=== PATIENT | male | born 1985 | race Caucasian/White ===

== ENCOUNTER 2018-02-10 03:35 | Emergency (ER) | payer OTHER ==
[~2018-02-10] VITALS: Ht 188 cm; Wt 128.0 kg
[2018-02-10 03:40] VITALS: TEMP 36.8; Ht 188 cm; Wt 128.0 kg
[2018-02-10] MEDS ORDERED: LABETALOL HCL IV 5 MG/ML 20ML IV STA (03:47)
[2018-02-10] MEDS ORDERED: SODIUM CHLORIDE 0.9% 1000ML 1,000 ML IV STA (03:47)
[2018-02-10 04:10] LABS: BASO % 0.9 %; BASO ABS # 0.07 K/uL (0-0.2); EOS % 2.2 %; EOS ABS # 0.18 K/uL (0-0.5); HEMATOCRIT 40.6 % (42-52); HEMOGLOBIN 13.8 g/dL (14.0-18.0); IG# 0.01 K/uL (0.00-0.02); LYMPH % 37.9 %; LYMPH ABS # 3.07 K/uL (1.2-3.4); MEAN CELL VOLUME 86.6 fL (80-100); MEAN CORPUSCULAR HEMOGLOBIN 29.4 pg (25-34); MEAN PLATELET VOLUME 9.2 fL (7.4-10.4); MONO % 6.7 %; MONO ABS # 0.54 K/uL (0.11-0.59); NEUT % 52.2 %; NEUT ABS # 4.22 K/uL (1.4-6.5); PLATELET COUNT 212 K/uL (130-400); RED CELL DISTRIBUTION WIDTH CV 12.6 % (11.5-14.5); RED CELL DISTRIBUTION WIDTH SD 39.9 fL (36.4-46.3); WHITE BLOOD COUNT 8.09 K/uL (4.8-10.8)
[2018-02-10] MEDS ORDERED: BUPR1SUB23 SL (04:12)
[2018-02-10 04:17] LABS: ISTAT CREATININE 1.1 mg/dl (0.6-1.3); ISTAT IONIZED CALCIUM 1.11 mmol/l (1.12-1.32); ISTAT POTASSIUM 3.3 mEq/L (3.3-5.0)
[2018-02-10 04:28] LABS: BLOOD UREA NITROGEN 13 mg/dl (7-18); CALCIUM 8.9 mg/dl (8.5-10.1); CARBON DIOXIDE 29 mmol/L (21-32); CREATININE 1.19 mg/dl (0.60-1.40); GLUCOSE 130 mg/dl (70-99); POTASSIUM 3.3 mmol/L (3.5-5.1); SODIUM 140 mmol/L (136-145)
[2018-02-10] MEDS ORDERED: OPTIRAY 320 IV PRN (04:45)
--- NOTE | 2018-02-10 04:45 | EMERGENCY ROOM VISIT NOTE ---
History First contact with patient: 03:38 Chief Complaint: HYPERTENSION Stated Complaint: HYPERTENSION History of Present Illness The patient is a 32 year old male who presents to the Emergency Room for evaluation of hypertension. Patient with long standing HTN though off meds for the last year (Lisinopril). Last BP check had been about a year ago. Admits sedentary lifestyle, bad diet, and smoking. Has been studying law and just graduated. Notes this evening with rushing sound/tinnitus in left ear and thus check BP and was 160/100. He was feeling a bit lightheaded (admits this may have been anxiety) and thus called [address]. He denies neuro deficits, vision changes, headache, arm pain, cp. He has no recent trauma , injury, car accidents, whiplash, manipulation of neck, etc. No history of dissection. Pt takes no medications. No PMH other than HTN. Notes family history of PE. No medications prior to arrival. Nothing makes symptoms better nor worse. Review of Systems See HPI for pertinent positives & negatives. A total of 10 systems reviewed and were otherwise negative. Past Medical/Surgical History Medical Problems: (1) Hypertension Hypertension, Smoking, Hepatitis C (treatment with cure Fall 2016) Social History Smoking Status: Current Some Day Smoker Alcohol Use: occasionally Drug Use: none Marital Status: single Occupation Status: [employer] student Current/Historical Medications Scheduled Buprenorphine Hcl-Naloxone Hcl (Suboxone 8-2 Mg), 1 DOSE SL DAILY Hydrochlorothiazide (Hctz), 1 TAB PO DAILY Physical Exam Vital Signs Date Time Temp Pulse Resp B/P (MAP) Pulse Ox O2 Delivery O2 Flow Rate FiO2 02/10/18 05:05 82 95 02/10/18 05:00 128/86 02/10/18 04:45 137/90 02/10/18 04:40 90 19 143/86 95 Room Air 02/10/18 04:39 143/86 02/10/18 04:35 92 20 144/105 96 Room Air 02/10/18 04:35 102 21 98 02/10/18 04:03 96 02/10/18 03:40 36.8 107 20 177/110 96 Room Air Physical Exam GENERAL: Patient is anxious appearing and in no acute distress. EYES: No scleral icterus, unremarkable pupils. EARS: Normal bilateral canals with some cerumen and normal TMs. ENT: Mucous membranes moist, no nasal congestion. NECK: No masses appreciated, no meningismus, trachea is midline. RESPIRATORY: No dyspnea. Clear to auscultation and equal bilaterally. No wheeze , no rhonchi. CARDIOVASCULAR: Regular rate and rhythm. No murmurs, rubs, gallops appreciated. GASTROINTESTINAL: Abdomen soft, nontender, no peritonitis. Bowel sounds positive. No masses appreciated. BACK: No midline tenderness, no CVA tenderness EXTREMITIES: Normal motion all extremities, no cyanosis, no edema. NEUROLOGIC: Alert and oriented, no acute motor or sensory deficits, no focal weakness, cranial nerves grossly intact. SKIN: No rash, no jaundice, no diaphoresis. Medical Decision & Procedures Laboratory Results 02/10/18 04:00 Red Blood Count 4.69, Mean Corpuscular Volume 86.6, Mean Corpuscular Hemoglobin 29.4, Mean Corpuscular Hemoglobin Concent 34.0, Mean Platelet Volume 9.2, Neutrophils (%) (Auto) 52.2, Lymphocytes (%) (Auto) 37.9, Monocytes (%) (Auto) 6.7, Eosinophils (%) (Auto) 2.2, Basophils (%) (Auto) 0.9, Neutrophils # (Auto) 4.22, Lymphocytes # (Auto) 3.07, Monocytes # (Auto) 0.54, Eosinophils # (Auto) 0.18, Basophils # (Auto) 0.07 02/10/18 04:00 Test 02/10/18 04:00 02/10/18 04:04 White Blood Count 8.09 K/uL (4.8-10.8) Red Blood Count 4.69 M/uL (4.7-6.1) Hemoglobin 13.8 g/dL (14.0-18.0) Hematocrit 40.6 % (42-52) Mean Corpuscular Volume 86.6 fL (80-100) Mean Corpuscular Hemoglobin 29.4 pg (25-34) Mean Corpuscular Hemoglobin Concent 34.0 g/dl (32-36) Platelet Count 212 K/uL (130-400) Mean Platelet Volume 9.2 fL (7.4-10.4) Neutrophils (%) (Auto) 52.2 % Lymphocytes (%) (Auto) 37.9 % Monocytes (%) (Auto) 6.7 % Eosinophils (%) (Auto) 2.2 % Basophils (%) (Auto) 0.9 % Neutrophils # (Auto) 4.22 K/uL (1.4-6.5) Lymphocytes # (Auto) 3.07 K/uL (1.2-3.4) Monocytes # (Auto) 0.54 K/uL (0.11-0.59) Eosinophils # (Auto) 0.18 K/uL (0-0.5) Basophils # (Auto) 0.07 K/uL (0-0.2) RDW Standard Deviation 39.9 fL (36.4-46.3) RDW Coefficient of Variation 12.6 % (11.5-14.5) Immature Granulocyte % (Auto) 0.1 % Immature Granulocyte # (Auto) 0.01 K/uL (0.00-0.02) Est Creatinine Clear Calc Drug Dose 124.4 ml/min Estimated GFR () 91.8 Estimated GFR (Non- 79.2 BUN/Creatinine Ratio 11.2 (10-20) Calcium Level 8.9 mg/dl (8.5-10.1) Troponin I < 0.015 ng/ml (0-0.045) Thyroid Stimulating Hormone (TSH) 1.600 uIu/ml (0.300-4.500) Bedside Hemoglobin 13.3 g/dl (14.0-18.0) Bedside Hematocrit 39 % (42-52) Bedside Sodium 142 mEq/L (135-144) Bedside Potassium 3.3 mEq/L (3.3-5.0) Bedside Chloride 103 mEq/L (101-112) Bedside Total CO2 26 mEq/l (24-31) Anion Gap 17.0 mmol/L (16-25) Bedside Blood Urea Nitrogen 14 mg/dl (7-18) Bedside Creatinine 1.1 mg/dl (0.6-1.3) Bedside Glucose (other) 135 mg/dl (70-99) Bedside Ionized Calcium (Negrita) 1.11 mmol/l (1.12-1.32) Medications Administered Medications (Trade) Dose Ordered Sig/Alvaro Route Start Time Stop Time Status Last Admin Dose Admin Sodium Chloride 1,000 ml @ 999 mls/hr Q1H1M STAT IV 02/10/18 03:47 02/10/18 04:47 DC 02/10/18 04:36 999 MLS/HR Labetalol HCl (Normodyne IV) 10 mg NOW STAT IV 02/10/18 03:47 02/10/18 03:50 DC 02/10/18 04:36 10 MG Hydrochlorothiazide (Hydrochlorothiazide Tab) 25 mg NOW STAT PO 02/10/18 05:18 02/10/18 05:19 DC 02/10/18 05:18 25 MG Medical Decision 32 yr old male arrives for evaluation of whooshing sound in left ear associated with elevated BP. With significant HTN and auditory symptoms felt that CTA indicated which was fortunately negative. I suspect persistent worsening BP with poor life style His BP was easily controlled with Labetalol and has no longer sound in ear. Labs, ekg unremarkable. Patient feeling much improved. Discussed restarting Lisinopril which he is hesitant to do, thus will switch to HCTZ 25mg PO. Discussed risks/side effects. Advised smoking cessation, weight loss and exercise. Reviewed symptoms requiring RTED. Stable and looks well at discharge. Impression Primary Impression: Hypertension Departure Information Dispostion Home / Self-Care Condition GOOD Prescriptions Hydrochlorothiazide (HCTZ) 25 Mg Tab 1 TAB PO DAILY for 30 Days, #30 TAB 5 Refills Prov: Chad Garnett M.D. 02/10/18 Referrals [facility] (PCP) Patient Instructions ED Hypertension Conf Out Of Control, My [facility]
[2018-02-10 05:00] VITALS: BP 128/86
[2018-02-10 05:05] VITALS: PULSE 82; O2SAT 95
[2018-02-10] MEDS ORDERED: HYDROCHLOROTHIAZIDE 25 MG TAB PO STA (05:18)
[2018-02-10] MEDS ORDERED: HYDR25TA4 PO (05:19)
--- NOTE | 2018-02-10 08:02 | DIAGNOSTIC IMAGING REPORT ---
NECK ANGIO WITH CONTRAST CLINICAL HISTORY: 32 years-old Male presenting with severe headache, tinnitus. TECHNIQUE: Multidetector CT angiography of the neck was performed after the administration of intravenous contrast. 3-D volumetric and/or maximum intensity projection (MIP) images were subsequently reconstructed for review. IV contrast: None. A dose lowering technique was used consistent with the principles of ALARA (as low as reasonably achievable). Stenosis measurements were based on NASCET-like criteria. COMPARISON: None. CT DOSE (mGy.cm): The estimated cumulative dose is 543.12 mGy.cm. FINDINGS: [employer]er[employer] Supervisor topogram: Unremarkable. Aortic arch: Atherosclerosis of the three-vessel aortic arch. Innominate artery: Patent. Right common carotid artery: Patent. Right internal and external carotid arteries: Right carotid bifurcation patent. Right internal and external carotid arteries widely patent. Left common carotid artery: Patent. Left internal and external carotid arteries: Left carotid bifurcation patent. Left internal and external carotid arteries widely patent. Left subclavian artery: Patent. Vertebral arteries: Codominant vertebral arteries. Origins and courses of the bilateral vertebral arteries patent. Other: Limited intracranial evaluation within normal limits. Soft tissues of the neck normal allowing for the phase of contrast. Normal cervical spine. Lung apices clear. IMPRESSION: 1. No evidence of dissection, focal vessel occlusion, or significant stenosis of the cervical arteries. Electronically signed by: Bryson Larkin M.D. 02/10/2018 8:01 AM Dictated Date/Time: 02/10/2018 6:55 AM
== END 2018-02-10 05:32 | disposition home or self-care (01) ==
LOC: C.EDB 03:38
DX: I10 Essential (primary) hypertension (principal); F17.210 Nicotine dependence, cigarettes, uncomplicated; Z86.19 Personal history of other infectious and parasitic diseases; Z79.899 Other long term (current) drug therapy